=== PATIENT | female | born 1955 | race Caucasian/White ===

== ENCOUNTER 2017-02-12 05:56 | Inpatient (IN) | payer BC ==
[~2017-02-12] VITALS: Ht 170.2 cm; Wt 82.3 kg
[2017-02-12] VITALS (24 sets, daily range): BP systolic 133–154; BP diastolic 62–97; PULSE 85–101; RESP 14–20; Ht 170.2 cm; Wt 82.3 kg
[2017-02-12] MEDS ORDERED: VANCOMYCIN 1 GM in NS 250 ML IVPB ONE (06:00)
[2017-02-12] MEDS ORDERED: LACTATED RINGER'S 1,000 ML IV* SCH (06:00)
[2017-02-12] MEDS ORDERED: GELATIN SIZE 100 SPONGE ONE (06:53)
[2017-02-12] MEDS ORDERED: BUPIVACAINE 0.25%/EPI (SDV) 10 ML INJ ONE (06:53)
[2017-02-12] MEDS ORDERED: THROMBIN 5000 UNIT VIAL ONE (06:53)
[2017-02-12] MEDS ORDERED: SODIUM CL BACTERIOSTATIC 30 ML INJ ONE (06:53)
[2017-02-12] MEDS ORDERED: SURGIFOAM POWDER 1 GM KIT ONE (06:53)
[2017-02-12] MEDS ORDERED: POLYMYXIN/BACITRACIN 1L IRRIG ONE (06:54)
--- NOTE | 2017-02-12 06:56 | HPN ---
Date/Time of Note Date/Time of Note DATE: 02/12/17 TIME: 06:56 Interval H&P Admission Note Pt. seen H&P reviewed: No system changes HU PEREZ MD Feb 12, 2017 06:56
[2017-02-12] MEDS ORDERED: HYDROmorphONE 0.2 MG/ML PCA IV SCH (07:00)
[2017-02-12] MEDS ORDERED: SUGAMMADEX SODIUM 200 MG/2 ML VIAL IV ONE (07:00)
[2017-02-12] MEDS ORDERED: BISACODYL 10 MG SUPP PR PRN (07:00)
[2017-02-12] MEDS ORDERED: PROVENTIL HFA 6.7GM INHALER ONE (07:00)
[2017-02-12] MEDS ORDERED: OXYCODONE/ACETAMINOPHEN (10/325) TAB PO PRN ×2 (07:00)
[2017-02-12] MEDS ORDERED: PROPOFOL 20 ML ONE (07:00)
[2017-02-12] MEDS ORDERED: ZOLPIDEM 5 MG TAB PO PRN ×2 (07:00→19:00)
[2017-02-12] MEDS ORDERED: AL HYDROX/MG HYDROX/SIMETH 30 ML CUP PO PRN (07:00)
[2017-02-12] MEDS ORDERED: CEPASTAT LOZENGE MT PRN (07:00)
[2017-02-12] MEDS ORDERED: ACETAMINOPHEN 325 MG TAB PO PRN (07:00)
[2017-02-12] MEDS ORDERED: HYDROmorphONE 1 MG/ML SYG IV PRN (07:00)
[2017-02-12] MEDS ORDERED: DESFLURANE 15 MIN ONE (07:00)
[2017-02-12] MEDS ORDERED: SUCCINYLCHOLINE CHLORIDE 100 MG/5 ML SYG IV ONE (07:00)
[2017-02-12] MEDS ORDERED: NALOXONE (0.4 MG/ML) INJ IV PRN (07:00)
[2017-02-12] MEDS ORDERED: DIPHENHYDRAMINE 50 MG INJ IV PRN ×2 (07:00→10:30)
[2017-02-12] MEDS ORDERED: METHOCARBAMOL 750 MG TAB PO PRN (07:00)
[2017-02-12] MEDS ORDERED: ROCURONIUM 50 MG INJ ONE (07:00)
[2017-02-12] MEDS ORDERED: MIDAZOLAM 1 MG/ML 2 ML INJ ONE (07:01)
[2017-02-12] MEDS ORDERED: LIDOCAINE 1% (MDV) 20 ML INJ ONE (07:01)
[2017-02-12] MEDS ORDERED: DEXAMETHASONE 4 MG/ML 1 ML INJ ONE ×2 (07:09→07:44)
[2017-02-12] MEDS ORDERED: LORA1TAB PO (07:26)
[2017-02-12] MEDS ORDERED: AREDS (07:26)
[2017-02-12] MEDS ORDERED: ALBU18HF INHALATION (07:26)
[2017-02-12] MEDS ORDERED: MELO7.5O PO (07:26)
[2017-02-12] MEDS ORDERED: ONDA8TAB83 PO (07:26)
[2017-02-12] MEDS ORDERED: ASPI-664 PO (07:26)
[2017-02-12] MEDS ORDERED: PRAM1TAB PO (07:26)
[2017-02-12] MEDS ORDERED: GABA100C14 PO (07:26)
[2017-02-12] MEDS ORDERED: LORA-186 PO (07:26)
[2017-02-12] MEDS ORDERED: METF1000 PO (07:26)
[2017-02-12] MEDS ORDERED: VERA180T6 PO (07:26)
[2017-02-12] MEDS ORDERED: LIRA0.6P2 SQ (07:26)
[2017-02-12] MEDS ORDERED: OXYC-209 PO (07:26)
[2017-02-12] MEDS ORDERED: ZOLP10TA5 PO (07:26)
[2017-02-12] MEDS ORDERED: CHOL400T10 PO (07:26)
[2017-02-12] MEDS ORDERED: OMEP20CA16 PO (07:26)
[2017-02-12] MEDS ORDERED: FOSI20TA PO (07:26)
[2017-02-12] MEDS ORDERED: METH750T2 PO (07:26)
[2017-02-12] MEDS ORDERED: DIPH25CA6 PO (07:26)
[2017-02-12] MEDS ORDERED: MULT-542 PO (07:26)
[2017-02-12] MEDS ORDERED: VENL225T PO (07:26)
[2017-02-12] MEDS ORDERED: ONDANSETRON 4 MG INJ ONE (07:44)
[2017-02-12] MEDS ORDERED: FAMOTIDINE 20 MG INJ ONE (07:45)
[2017-02-12] MEDS ORDERED: THROMBIN 5000 UNIT VIAL TOP ONE (07:49)
[2017-02-12] MEDS ORDERED: FENTAnyl 50 MCG/ML VIAL ONE (08:24)
[2017-02-12] MEDS ORDERED: LABETALOL HCL 20MG INJ ONE (08:37)
[2017-02-12] MEDS: DOCUSATE SODIUM 100 MG CAP PO SCH ×2 (09:00→21:13)
[2017-02-12] MEDS ORDERED: PHENYLephrine (100 MCG/ML) 5ML SYG ONE (09:04)
[2017-02-12] MEDS ORDERED: FENTAnyl 50 MCG/ML VIAL IV PRN ×2 (10:30)
[2017-02-12] MEDS ORDERED: ONDANSETRON 4 MG INJ IV PRN (10:30)
[2017-02-12] MEDS ORDERED: LABETALOL HCL 20MG INJ IV PRN (10:30)
[2017-02-12] MEDS ORDERED: ALBUTEROL 0.083% (NEB) 2.5 MG/3 ML AMP HHN PRN (10:30)
[2017-02-12] MEDS ORDERED: morphine (1 MG/ML) 10ML SYRINGE IV PRN ×3 (10:30)
[2017-02-12] MEDS ORDERED: MEPERIDINE 25 MG INJ IV PRN (10:30)
[2017-02-12] MEDS ORDERED: hydrALAzine 20 MG INJ IV PRN (10:30)
--- NOTE | 2017-02-12 11:01 | OPPN ---
Date/Time of Note Date/Time of Note DATE: 02/12/17 TIME: 10:57 Operative Report Preoperative Diagnosis C4-7 DDD and stenosis, cervical radiculopathy Postoperative Diagnosis C4-7 DDD and stenosis, cervical radiculopathy Operation/Procedure Performed ACDF C4-7 Provider: HU PEREZ MD medical assistant cardiology: NILES OWENS PA-C Anesthesia Type: general Estimated blood loss: 10 - 50 ml's Transfusion Required: no Specimens C4-7 disc Grafts/Implants zavation and neurostructures Complications: no NILES OWENS PA-C Feb 12, 2017 11:01
--- NOTE | 2017-02-12 13:05 | OPR ---
DATE OF OPERATION: 02/12/2017 PREOPERATIVE DIAGNOSES: 1. C4-5 disc herniation. 2. C5-6, C6-7 cervical disc disease and stenosis. 3. Cervical radiculopathy. POSTOPERATIVE DIAGNOSES: 1. C4-5 disc herniation. 2. C5-6, C6-7 cervical disc disease and stenosis. 3. Cervical radiculopathy. PROCEDURES: 1. Anterior cervical diskectomy, spinal cord decompression at C4-5, C5-6, C6-7. 2. Placement of intervertebral biomechanical device at C4-5, C5- 6, C6-7. 3. Placement of anterior hardware at C4, C5, C6, and C7. 4. Use of allograft. 5. Use of C-arm fluoroscopy with interpretation without radiologist present. 6. Use of operative microscope. 7. Intraoperative neuro monitoring (3 hours). IMPLANTS: 1. [employer] Spine Zavation 48 mm cervical plate with 14 mm screws. 2. Neuro structure Cavetto cervical cages 5 mm at C4-5, 4 mm at C5-6 and C6-7. PRIMARY SURGEON: Dr. Brandan Alva. CANAL BOAT CAPTAIN: CASIMIRO Salgado. NEED FOR SAIL REPAIRER: purchasing administrative assistant was required for retraction of the neurovascular elements. FINDINGS: Neuro monitoring start of the case revealed bilateral C5 amplitude down 20 percent, left C6 amplitude down 50 percent, right C6 amplitude down 30 percent, left C7 amplitude down 40 percent, right C7 amplitude down 20 percent. At the end of the case nerve signal returned to normal. The patient had instability at C5-6 with stenosis. Patient had disc collapse at C6-7 with stenosis. Patient had a left-sided herniation at C4-5 with stenosis. ESTIMATED BLOOD LOSS: 30 cc. DRAINS: None. SPECIMENS: Disc. COMPLICATIONS OF PROCEDURE: None. ANESTHESIOLOGIST: Dr. Cheema. ANESTHESIA: General. INDICATION FOR PROCEDURE: This is a 61-year-old female with cervical radiculopathy, left greater than right. She has failed nonoperative measures. She developed progressive weakness therefore recommended she undergo the above surgery. Preoperatively, discussed risks, benefits, alternatives, she understood, wished to proceed. DESCRIPTION OF PROCEDURE IN DETAIL: The patient was identified in the preoperative holding area, given vancomycin antibiotics, taken the operating room, where she was successfully placed under general anesthesia. Latex precautions were utilized. Neuro monitor leads were placed, sequential devices were applied. Proctor catheter was introduced. Neuro monitor was utilized during the procedure for 3 hours to include SSEP, MEP, and EMG. Start time was 7:45 a.m. closure time was 10:45 a.m. The patient was placed on the operative table in supine position. Rolls were placed behind the neck and between the scapular blades and the neck was extended. Neck was then prepped and draped in usual sterile fashion. A left-sided approach to the neck was made. Skin was incised, platysma incised in line with skin incision. I then identified the interval between the sternocleidomastoid and strap muscles. I identified the anterior spine. I then placed bent spinal needle to confirm the correct levels with a lateral C- arm image. Once this was confirmed, I subperiosteally dissected the longus colli musculature at C4-5, C5-6 and C6-7. I placed self-retaining retractors. I took a rongeur and removed the anterior osteophytes. Microscope was brought in and bilateral discectomy was performed at C4-5, C5-6 and C6-7. Removing the posterior osteophytes and decompressing the spinal cord at each level using Kerrison, pituitary rongeurs, and high-speed bur. I prepared the end-plates and placed various trials and chose the appropriate graphite. I then took the PEEK cage within which I placed allograft and I impacted an intervertebral biomechanical device at C4-5, C5-6 and C6-7 to complete the anterior fusion at these levels. I then placed the appropriate size cervical plate anteriorly with 14 mm screws bilaterally at C4, C5, C6 and C7. I locked each of the screws down and once this was done, I took final AP and lateral images and I was happy with the placement of the hardware in line of the spine. The nerve signal returned to normal. The wound was then irrigated. Microscope was taken off the field. Surgiflo was injected for hemostatic purposes. I then placed a deep drain. I closed the platysma with a running 2- 0 Vicryl stitch. I then closed subcutaneous tissue with 3-0 Vicryl stitch. Dermabond and sterile dressing was then applied. The patient was then awakened from anesthesia, and taken recovery in stable condition. Lap, sponge, and counts correct x2. There were no apparent complications during the procedure. The patient will be admitted to the [facility] for routine postoperative care to include pain control, antibiotics and physical therapy. Dictated By: Brandan Alva MD /dustin/yury /Document#: [id number]
[2017-02-12] MEDS: 1/2 NS + KCL 20 MEQ 1,000 ML IV SCH ×2 (13:16→16:00)
--- NOTE | 2017-02-12 13:18 | RADRPT ---
PROCEDURE: Intraoperative fluoroscopy. CLINICAL INDICATION: Intraoperative fluoroscopy during cervical spine surgery. TECHNIQUE: 7 spot intraoperative fluoroscopic images were provided. The images were reviewed on a high-resolution PACS workstation. COMPARISON: None available FINDINGS: Multiple spot intraoperative fluoroscopic views were provided during cervical spine surgery. The im ages demonstrate metallic probe at the level of C5. Subsequent images demonstrate placement of pair ed anterior vertebral body screws in the C4 and C7 vertebral bodies with associated anterior spinal fusion plate spanning from C4-C7. There are disc-spacers at C4-5, C5-6 and C6-7, which appear in sa tisfactory position. The total fluoroscopy time was 9.4 seconds. IMPRESSION: 1. Multiple spot intraoperative fluoroscopic views during anterior cervical fusion from C4-C7 were provided. 2. Please see operative report of the same day for further information. RPTAT: HGAS .Mauro Alvarez MD, Date Time Electronically viewed and signed by .Mauro Alvarez MD, MD on 02/12/2017 13:17 .S/
[2017-02-12] MEDS ORDERED: morphine 2 MG INJ IV PRN (13:30)
[2017-02-12] MEDS: morphine 1 MG/ML 30 ML (PCA) IV SCH (13:33)
[2017-02-12] MEDS: ONDANSETRON 4 MG INJ IV PRN ×2 (15:46→21:37)
[2017-02-12] MEDS: VANCOMYCIN 1 GM (PMX) 250 ML IVPB SCH (17:52)
[2017-02-12] MEDS ORDERED: DIPHENHYDRAMINE 25 MG CAP PO PRN (19:00)
--- NOTE | 2017-02-12 19:03 | HP ---
Date/Time of Note Date/Time of Note DATE: 02/12/17 TIME: 18:55 Assessment/Plan VTE Prophylaxis VTE Prophylaxis Intervention: SCD's Lines/Catheters IV Catheter Type (from Nrsg): Saline Lock Urinary Cath still in place: Yes Reason Cath still needed: urinary retention Assessment/Plan Problems: (1) Status post cervical spinal fusion Status: Acute Comment: She is postoperative day and is sitting up in bed. She is able to move all extremities and denies any neuropathic symptoms at this time. Please note she has chronic right lower extremity distal neuropathic pain from a prior injury in the remote past (2) Essential hypertension Status: Chronic Comment: Transition over from nonformulary medication of valsartan to cover her needs (3) Type 2 diabetes mellitus with peripheral neuropathy Status: Chronic Comment: Continue his medication management. She will be continued on her gabapentin for the nerve pain. (4) Hyperlipidemia Status: Chronic Comment: Continue with her statins. She is on Crestor 5 mg once a day as an outpatient will use atorvastatin at 10 while in the hospital. Qualifiers: Hyperlipidemia type: pure hypercholesterolemia Qualified Code: E78.00 - Pure hypercholesterolemia (5) Asthma, moderate persistent Status: Chronic Comment: I am going to place her on Advair for the Qualifiers: Asthma complication type: uncomplicated Qualified Code: J45.40 - Moderate persistent asthma without complication (6) Chronic pain syndrome Status: Chronic Comment: Noted. She is somewhat stoic but this will help to temper are therapeutics for her. 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 Will do her best to avoid creating any issues HPI/ROS Admit Date/Time Admit Date/Time Feb 12, 2017 at 05:56 Hx of Present Illness 61-year-old right-handed female admitted electively by Dr. Alva for anterior cervical spine fusion. She is seen postoperatively on the floor. ROS Constitutional: no complaints (Denies fevers chills or sweats) Eyes: no complaints (No known diabetic retinopathy) ENT: no complaints Respiratory: no complaints Cardiovascular: no complaints Gastrointestinal: no complaints Genitourinary: no complaints Musculoskeletal: neck pain Skin: no complaints Neurologic: other (Radicular symptoms of the upper extremities) Endocrine: no complaints, other (Reports outpatient A1c of 7.8) PMH/Family/Social Past Medical History Reported history of fibromyalgia; multiple significant environmental allergens; gastroesophageal reflux disease; history of renal stones remotely; dysthymia with anxiety; osteoarthritis; asthma persistent mild; Medical History: diabetes, high cholesterol, hypertension Past Surgical History Past Surgical Hx: noncontributory Family History Significant Family History: diabetes, hypertension Social History lives with her second ; 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 Alcohol Use: occasionally Smoking Status: Never smoker Drug Use: none Exam/Review of Systems Vital Signs Vitals Vital Signs Date Time Temp Pulse Resp B/P Pulse Ox O2 Delivery O2 Flow Rate FiO2 02/12/17 17:17 16 02/12/17 16:00 101 146/82 99 Room Air 02/12/17 14:00 98.7 02/12/17 12:17 2.0 Exam Constitutional: alert, oriented Head: atraumatic, normocephalic Eyes: EOMI, nl conjunctiva, nl lids, nl sclera Neck: other (In a full neck collar) Respiratory: clear to auscultation, normal air movement Cardiovascular: nl pulses, regular rate and rhythm Gastrointestinal: nl liver, spleen, non-tender, soft Medications Medications Current Medications Lactated Ringer's 1,000 ml @ 0 mls/hr Q0M IV* Last administered on 02/12/17 06 :42; Admin Dose 30 MLS/HR; Start 02/12/17 at 06:00; Stop 02/12/17 at 23:00 Potassium Chloride/Sodium Chloride (1/2 NS + KCl 20 Meq) 1,000 ml @ 100 mls/hr Q10H IV Last administered on 02/12/17 13:16; Admin Dose 100 MLS/HR; Start at 06:56 Oxycodone/ Acetaminophen (Endocet (10/ 325)) 1 tab Q4H PRN PO PAIN LEVEL 1-5; Start 02/12/17 at 07:00; Status Future Hold Oxycodone/ Acetaminophen 2 tab 2 tab Q4H PRN PO PAIN LEVEL 6-10; Start 02/12/17 at 07:00; Status Future Hold Vancomycin HCl (Vancocin) 250 ml @ 125 mls/hr Q12H IVPB Last administered on 17:52; Admin Dose 125 MLS/HR; Start 02/12/17 at 18:00; Stop 02/13/17 at 07 :59 Ondansetron HCl (Zofran Inj) 4 mg Q6H PRN IV NAUSEA AND/OR VOMITING Last administered on 02/12/17t 15:46; Admin Dose 4 MG; Start 02/12/17 at 07:00 Bisacodyl (Dulcolax Supp) 10 mg DAILY PRN MI CONSTIPATION; Start 02/12/17 at 07: 00 Docusate Sodium (Colace) 100 mg BID PO ; Start 02/12/17 at 09:00 Pantoprazole (Protonix Iv) 40 mg DAILY@06 IV ; Start 02/13/17 at 06:00 Al Hydrox/Mg Hydrox/Simethicone (Mag-Al Plus) 15 ml Q6H PRN PO CONSTIPATION/ DYSPEPSIA; Start 02/12/17 at 07:00 Acetaminophen (Tylenol Tab) 650 mg Q4H PRN PO LOVELACE OR TEMP GREATER THAN 101.3F; Start 02/12/17 at 07:00 Phenol (Cepastat Lozenge) 1 lozenge PRN PRN MT SORE THROAT; Start 02/12/17 at 07 :00 Diphenhydramine HCl (Benadryl) 25 mg Q6H PRN IV ITCHING; Start 02/12/17 at 07:00 Naloxone HCl (Narcan) 0.2 mg Q2M PRN IV RR 8 BREATHS/MIN OR LESS; Start at 07:00 Miscellaneous Information 1. Hold SWATCH PASTER at 1,000... SWATCH PASTER IV ; Start 02/12/17 at 07: 00 Methocarbamol (Robaxin) 750 mg Q8H PRN PO spasm; Start 02/12/17 at 07:00 Morphine Sulfate (morphine) 1 mg Q1H PRN IV BREAKTHROUGH PAIN; Start 02/12/17 at 13:30 Morphine Sulfate (morphine) SWATCH PASTER to be started in PACU Q4PCA IV Last administered on 02/12/17t 13:33; Admin Dose 30 MG; Start 02/12/17 at 13:30 Albuterol (Proventil (O.r. Use Only)) 2 puff Q6H PRN INH WHEEZING; Start at 19:00; Status UNV Cholecalciferol (Vitamin D) 2,000 units DAILY PO ; Start 02/13/17 at 09:00; Status UNV Diphenhydramine HCl (Benadryl) 25 mg Q6 PRN PO ITCHING; Start 02/12/17 at 19:00 ; Status UNV Gabapentin (Neurontin) 100 mg TID PO ; Start 02/12/17 at 21:00 Loratadine (Claritin) 10 mg DAILY PO ; Start 02/13/17 at 09:00 Metformin HCl (Glucophage) 1,000 mg BID PO ; Start 02/12/17 at 21:00; Status UNV Methocarbamol (Robaxin) 750 mg TID PO ; Start 02/12/17 at 21:00; Status UNV Multivitamins Therapeutic (Theragran) 1 tab DAILY PO ; Start 02/13/17 at 09:00 Pramipexole (Mirapex) 1 mg HS PO ; Start 02/12/17 at 21:00 Venlafaxine HCl (Effexor Xr) 225 mg DAILY PO ; Start 02/13/17 at 09:00; Status UNV Verapamil HCl (Isoptin Sr) 180 mg DAILY PO ; Start 02/13/17 at 09:00 Zolpidem Tartrate (Ambien) 10 mg QHS PRN PO INSOMNIA; Start 02/12/17 at 19:00 Miscellaneous Information 20 mg DAILY PO ; Start 02/13/17 at 09:00; Status UNV Valsartan (Diovan) 160 mg BID PO ; Start 02/12/17 at 21:00 Exenatide (Byetta) 10 mcg BID SC ; Start 02/12/17 at 21:00; Status UNV Miscellaneous Information (* Miscellaneous Pharmacy Order) Discontinue current oral sulfonylur... ONCE ONCE XX ; Start 02/12/17 at 19:00; Stop 02/12/17 at 19:01 ; Status UNV Diagnostic Test (Pha) (Accu-Chek) 1 ea XX ; Start 02/13/17 at 02:00; Status UNV Miscellaneous Information (* Miscellaneous Pharmacy Order) HYPOGLYCEMIA PROTOCOL w... ONCE ONCE XX ; Start 02/12/17 at 19:00; Stop 02/12/17 at 19:01; Status UNV Miscellaneous Information (* Miscellaneous Pharmacy Order) Discontinue all previ... ONCE ONCE XX ; Start 02/12/17 at 19:00; Stop 02/12/17 at 19:01; Status UNV Diagnostic Test (Pha) (Accu-Chek) 1 ea 02 XX ; Start 02/13/17 at 02:00; Status NELLY DURHAM MD Feb 12, 2017 19:03
[2017-02-12] MEDS ORDERED: GLUCOSE GEL 15 GRAM TUBE BUCCAL PRN (19:30)
[2017-02-12] MEDS ORDERED: GLUCAGON 1 MG INJ IM PRN (19:30)
[2017-02-12] MEDS ORDERED: DEXTROSE 50% 50 ML SYRINGE IV PRN ×2 (19:30)
[2017-02-12] MEDS ORDERED: ALBUTEROL 18 GM INHALER INH PRN (19:30)
[2017-02-12] MEDS ORDERED: GLUCOSE GEL 15 GRAM TUBE PO PRN ×2 (19:30)
[2017-02-12] MEDS: ACCU-CHEK XX SCH (19:55)
[2017-02-12] MEDS ORDERED: ATORVASTATIN 10 MG TAB PO SCH (21:00)
[2017-02-12] MEDS ORDERED: PRAMIPEXOLE 1 MG TAB PO SCH (21:00)
[2017-02-12] MEDS ORDERED: EXENATIDE 250 MCG/ML 2.4ML PEN SC SCH (21:00)
[2017-02-12] MEDS ORDERED: metFORMIN 500 MG TAB PO SCH (21:00)
[2017-02-12] MEDS: METHOCARBAMOL 750 MG TAB PO SCH (21:13)
[2017-02-12] MEDS: GABAPENTIN 100 MG CAP PO SCH (21:14)
[2017-02-12] MEDS: VALSARTAN 160 MG TAB PO SCH (21:14)
[2017-02-12] MEDS: INSULIN ASPART [NOVOLOG] 3 ML PEN SC SCH (21:18)
[2017-02-12] MEDS: SALMETEROL/FLUTICASONE 250/50 INHA INH SCH (21:37)
[2017-02-13 00:15] VITALS: BP 124/65; RESP 20
[2017-02-13] MEDS: 1/2 NS + KCL 20 MEQ 1,000 ML IV SCH ×2 (00:33→12:47)
[2017-02-13] MEDS ORDERED: ACCU-CHEK XX SCH ×2 (02:00)
[2017-02-13] MEDS: ONDANSETRON 4 MG INJ IV PRN ×2 (03:16→09:30)
[2017-02-13 04:00] VITALS: BP 127/66; PULSE 102
[2017-02-13] MEDS: VANCOMYCIN 1 GM (PMX) 250 ML IVPB SCH (05:03)
[2017-02-13 05:16] LABS: BASOPHILS % 0.2 % (0.0-2.0); EOSINOPHILS # 0.3 10^3/ul (0.0-0.5); EOSINOPHILS % 2.2 % (0.0-7.0); HEMATOCRIT 40.2 % (37.0-47.0); HEMOGLOBIN 13.1 g/dl (12.0-16.0); LYMPHOCYTES # 1.7 10^3/ul (0.8-2.9); MEAN CORPUSCULAR HEMOGLOBIN 28.5 pg (29.0-33.0); MEAN CORPUSCULAR HGB CONC 32.6 g/dl (32.0-37.0); MEAN CORPUSCULAR VOLUME 87.6 fl (82.0-101.0); MEAN PLATELET VOLUME 11.4 fl (7.4-10.4); MONOCYTE # 0.8 10^3/ul (0.3-0.9); NEUTROPHIL # 10.1 10^3/ul (1.6-7.5); PLATELET COUNT 245 10^3/UL (140-415); RED BLOOD COUNT 4.59 10^6/ul (4.20-5.40); RED CELL DISTRIBUTION WIDTH 13.7 % (11.5-14.5); WHITE BLOOD COUNT 12.9 10^3/ul (4.8-10.8)
[2017-02-13 05:47] LABS: CALCIUM 9.4 mg/dl (8.4-10.2); CREATININE 0.6 mg/dl (0.44-1.00); MAGNESIUM 1.8 mg/dl (1.7-2.5); POTASSIUM 4.3 mmol/L (3.5-5.1)
[2017-02-13] MEDS ORDERED: PANTOPRAZOLE 40 MG INJ IV SCH (06:00)
[2017-02-13] MEDS ORDERED: PANTOPRAZOLE (EC) 40 MG TAB PO SCH (06:00)
[2017-02-13] MEDS: morphine 1 MG/ML 30 ML (PCA) IV SCH (06:15)
[2017-02-13] MEDS ORDERED: metFORMIN 500 MG TAB PO SCH (07:50)
[2017-02-13] MEDS: INSULIN ASPART [NOVOLOG] 3 ML PEN SC SCH ×2 (07:50→12:38)
[2017-02-13 08:17] VITALS: BP 148/74; RESP 18
[2017-02-13] MEDS: METHOCARBAMOL 750 MG TAB PO SCH ×2 (08:34→12:27)
[2017-02-13] MEDS: DOCUSATE SODIUM 100 MG CAP PO SCH (08:34)
[2017-02-13] MEDS: SALMETEROL/FLUTICASONE 250/50 INHA INH SCH (08:34)
[2017-02-13] MEDS: GABAPENTIN 100 MG CAP PO SCH ×2 (08:34→12:27)
[2017-02-13] MEDS: VALSARTAN 160 MG TAB PO SCH (08:34)
[2017-02-13] MEDS ORDERED: MULTIVITAMINS THERAPEUTIC TAB PO SCH (09:00)
[2017-02-13] MEDS ORDERED: VERAPAMIL (SR) 180 MG TAB PO SCH (09:00)
[2017-02-13] MEDS ORDERED: EXENATIDE 250 MCG/ML 2.4ML PEN SC SCH (09:00)
[2017-02-13] MEDS ORDERED: CHOLECALCIFEROL 2,000 UNIT CAP PO SCH (09:00)
[2017-02-13] MEDS ORDERED: VENLAFAXINE (XR) 75 MG CAP PO SCH (09:00)
[2017-02-13] MEDS ORDERED: LORATADINE 10 MG TAB PO SCH (09:00)
--- NOTE | 2017-02-13 09:46 | PN ---
Date/Time of Note Date/Time of Note DATE: 02/13/17 TIME: 09:45 Assessment/Plan Lines/Catheters IV Catheter Type (from Nrsg): Saline Lock Proctor in Place (from Nrsg): Yes Assessment/Plan Assessment/Plan POD 1 s/p ACDF c/o nausea and trapezial pain - will d/c morphine and drain. possible d/c later today if nausea controlled Subjective 24 Hr Interval Summary c/o nausea and trapezial pain Exam/Review of Systems Vital Signs Vitals Vital Signs Date Time Temp Pulse Resp B/P Pulse Ox O2 Delivery O2 Flow Rate FiO2 02/13/17 08:17 98.4 106 18 148/74 100 02/13/17 04:00 Nasal Cannula 2.0 Intake and Output 02/12/17 02/12/17 02/13/17 15:00 23:00 07:00 Intake Total 3000 ml 570 ml 1850 ml Output Total 355 ml 2825 ml 2505 ml Balance 2645 ml -2255 ml -655 ml Exam Free Text/Dictation left shoulder weakness - same as pre-op Results Result Diagram: 02/13/17 0435 02/13/17 0435 HU PEREZ MD Feb 13, 2017 09:46
[2017-02-13] MEDS: ACCU-CHEK XX SCH ×2 (10:44→13:40)
--- NOTE | 2017-02-13 13:02 | DS ---
Date/Time of Note Date/Time of Note DATE: 02/13/17 TIME: 13:01 Discharge Summary Admission/Discharge Info Admit Date/Time Feb 12, 2017 at 05:56 Discharge Date/Time 02/13/17 Discharge Diagnosis s/p cervical fusion Patient Condition: Good Procedures cervical fusion Hospital Course the patient was admitted after undergoing a cervical fusion. On post op day 1 she was deemed stabe for d/c with f/u arranged with the undersigned Home Meds Reported Medications [Areds] No Conflict Check 02/12/17 Multivitamin* (Daily Value*) 1 Each Tablet, 1 TAB PO DAILY, TAB 02/12/17 Cholecalciferol* (Vitamin D*) 400 Unit Tablet, 2000 UNIT PO DAILY, TAB 02/12/17 Albuterol Sulfate* (Ventolin HFA*) 18 Gm Hfa.aer.ad, 2 PUFF INHALATION Q6H, #1 INHALER 02/12/17 Oxycodone HCl/Acetaminophen (Percocet 10-325 mg Tablet) 1 Each Tablet, 1 EACH PO , TAB 02/12/17 Diphenhydramine Hcl* (Diphenhydramine Hcl*) 25 Mg Capsule, 25 MG PO Q6 Y for ITCHING, CAP 02/12/17 Ondansetron Hcl* (Ondansetron Hcl*) 8 Mg Tablet, 8 MG PO Q8, TAB 02/12/17 Lorazepam* (Lorazepam*) 1 Mg Tablet, 1 MG PO HS, #30 TAB 02/12/17 Zolpidem Tartrate* (Zolpidem Tartrate*) 10 Mg Tablet, 10 MG PO QHS Y for INSOMNIA, #30 TAB 02/12/17 Methocarbamol* (Methocarbamol*) 750 Mg Tablet, 750 MG PO TID, TAB 02/12/17 Pramipexole* (Pramipexole*) 1 Mg Tablet, 1 MG PO HS, TAB 02/12/17 Gabapentin* (Gabapentin*) 100 Mg Capsule, 100 MG PO TID, #90 CAP 02/12/17 Fosinopril Sodium (Fosinopril Sodium) 20 Mg Tablet, 20 MG PO DAILY, TAB 02/12/17 Aspirin* (Aspirin* (EC)) 81 Mg Tablet.dr, 81 MG PO DAILY, TAB 02/12/17 Meloxicam* (Meloxicam*) 7.5 Mg/5 Ml Oral.susp, 7.5 MG PO BID, #150 ML 02/12/17 Loratadine* (Claritin*) 10 Mg Tablet, 10 MG PO DAILY, TAB 02/12/17 Venlafaxine Hcl* (Venlafaxine Hcl ER*) 225 Mg Tab.er.24, 225 MG PO DAILY, TAB.SA 02/12/17 Omeprazole* (Omeprazole*) 20 Mg Capsule.dr, 20 MG PO DAILY, #30 CAP 02/12/17 Verapamil Hcl* (Verapamil ER*) 180 Mg Tablet.er, 180 MG PO DAILY, TAB.SA 02/12/17 Liraglutide (Victoza 3-Brandon) 0.6 Mg/0.1 Ml Pen.injctr, 1.8 MG SQ DAILY, SYR 02/12/17 Metformin Hcl* (Metformin Hcl*) 1,000 Mg Tablet, 1000 MG PO BID, #30 TAB 02/12/17 Primary Care Provider Not On Staff Doctor Pending Labs Laboratory Tests Test 02/12/17 19:52 02/12/17 21:12 02/13/17 02:24 02/13/17 04:35 Bedside Glucose 222mg/dL (70-220) 183mg/dL (70-220) 168mg/dL (70-220) White Blood Count 12.910^3/ul (4.8-10.8) Red Blood Count 4.5910^6/ul (4.20-5.40) Hemoglobin 13.1g/dl (12.0-16.0) Hematocrit 40.2% (37.0-47.0) Mean Corpuscular Volume 87.6fl (82.0-101.0) Mean Corpuscular Hemoglobin 28.5pg (29.0-33.0) Mean Corpuscular Hemoglobin Concent 32.6g/dl (32.0-37.0) Red Cell Distribution Width 13.7% (11.5-14.5) Platelet Count 11628^3/UL (140-415) Mean Platelet Volume 11.4fl (7.4-10.4) Neutrophils % 78.0% (39.0-77.0) Lymphocytes % 13.0% (15.0-51.0) Monocytes % 6.0% (0.0-11.0) Eosinophils % 2.2% (0.0-7.0) Basophils % 0.2% (0.0-2.0) Nucleated Red Blood Cells % 0.0/100WBC (0.0-0.0) Neutrophils # 10.110^3/ul (1.6-7.5) Lymphocytes # 1.710^3/ul (0.8-2.9) Monocytes # 0.810^3/ul (0.3-0.9) Eosinophils # 0.310^3/ul (0.0-0.5) Basophils # 0.010^3/ul (0.0-0.1) Nucleated Red Blood Cells # 0.010^3/ul (0.0-0.0) Sodium Level 142mmol/L (135-144) Potassium Level 4.3mmol/L (3.5-5.1) Chloride Level 98mmol/L (97-110) Carbon Dioxide Level 27mmol/L (21-31) Anion Gap 21 (8-16) Blood Urea Nitrogen 12mg/dl (7-20) Creatinine 0.60mg/dl (0.44-1.00) Glucose Level 183mg/dl (70-220) Calcium Level 9.4mg/dl (8.4-10.2) Magnesium Level 1.8mg/dl (1.7-2.5) Test 02/13/17 08:32 02/13/17 10:43 02/13/17 12:27 Bedside Glucose 126mg/dL (70-220) 156mg/dL (70-220) 147mg/dL (70-220) HU PEREZ MD Feb 13, 2017 13:02
== END 2017-02-13 14:36 | disposition home or self-care (01) | DRG 473 ==
LOC: REC 05:56 → MS1 13:10
PROVIDERS: ADMIT Specialist; ATTEND Specialist
PROC: 0RG20K0 Fusion of 2 or more Cervical Vertebral Joints with Nonautologous Tissue Substitute, Anterior Approach, Anterior Column, Open Approach (ICD-10-PCS; 2017-02-12)
PROC: 0RB30ZZ Excision of Cervical Vertebral Disc, Open Approach (ICD-10-PCS; 2017-02-12)
PROC: 0RG20A0 Fusion of 2 or more Cervical Vertebral Joints with Interbody Fusion Device, Anterior Approach, Anterior Column, Open Approach (ICD-10-PCS; principal; 2017-02-12 07:00)
DX: M50.11 Cervical disc disorder with radiculopathy, high cervical region (principal); E11.42 Type 2 diabetes mellitus with diabetic polyneuropathy; I10 Essential (primary) hypertension; E78.5 Hyperlipidemia, unspecified; J45.40 Moderate persistent asthma, uncomplicated; G89.4 Chronic pain syndrome; Z88.9 Allergy status to unspecified drugs, medicaments and biological substances
CPT/HCPCS: 72050; 80048; 82962; 83735; 85025; 88304; 97116; 97164; 97530; C1713; C9113; J1100; J1170; J1815; J2250; J2270; J2370; J2405; J3010; J3370; J3480; J7120; J7999